=== PATIENT | male | born 1935 | race Caucasian/White ===

== ENCOUNTER 2018-04-18 08:11 | Observation (INO) ==
[2018-04-18] MEDS ORDERED: 0.9 % Sodium Chloride 1,000 ML IVC ONE (08:13)
--- NOTE | 2018-04-18 08:17 | Emergency Department Note ---
Disposition Clinical Impression: Hypertension, Vertigo, Pneumonia Disposition: Admitted As Inpatient Condition: Fair Time of Disposition: 10:08 ([facility] Dizziness HPI - General Source: patient, family Mode of arrival: wheelchair Limitations: no limitations Nursing Notes Reviewed: Yes Vital Signs Reviewed: Yes - History of Present Illness Pt Subjective Complaint: dizziness, near syncope, weakness Onset (ago): day(s) Timing: gradual onset, waxing/waning (and worsening) Description: "room spinning", off-balance History of similar episodes: No History of trauma: No Severity: severe Improves with: remaining still Worsens with: movement, position Associated symptoms: Reports: ataxia, diaphoresis, weakness, nausea. Denies: chest pain, confusion, fever, chills, malaise, rash, shortness of breath, syncope, vision changes, vomiting, palpitations - Related Data Home Medications Medication Instructions Recorded Confirmed Lisinopril [Zestril] 20 mg PO DAILY 03/22/16 03/23/16 Simvastatin [Zocor] 40 mg PO HS 03/22/16 03/23/16 Tamsulosin [Flomax] 0.4 mg PO DAILY 03/22/16 03/23/16 Previous Rx's Medication Instructions Recorded Ciprofloxacin [Cipro] 500 mg PO BID #10 tablet 03/24/16 Lactobacillus [Culturelle] 1 each PO DAILY 10 Days cap.sprink 03/24/16 metroNIDAZOLE [Flagyl] 500 mg PO TID #15 tablet 03/24/16 Allergies Allergy/AdvReac Type Severity Reaction Status Date / Time No Known Allergies Allergy Verified 03/23/16 09:19 All systems ED: reviewed and negative except as stated. Review of Systems: As Per HPI Constitutional: Reports: weakness. Denies: fever, chills Eyes: Denies: eye pain, eye discharge ENT ED: Denies: ear pain, throat pain, dental pain, hearing loss Cardiovascular: Denies: chest pain, palpitations, dyspnea on exertion Respiratory: Reports: dyspnea. Denies: cough, wheezes, hemoptysis Gastrointestinal: Reports: nausea. Denies: abdominal pain, vomiting, diarrhea, constipation Genitourinary: Denies: urgency, dysuria, frequency, hematuria Musculoskeletal: Denies: back pain, neck pain, joint swelling Integumentary: Denies: rash, abrasion, lesions Neurological: Reports: weakness, vertigo. Denies: headache, numbness, paresthesias, confusion Psychiatric: Denies: anxiety, depression Endocrine: Denies: fatigue, heat or cold intolerance Hematological/Lymphatic: Denies: easy bleeding Allergic/Immunologic: Denies: facial swelling Past Medical History - Past Medical History Attestation: Yes The following information was validated with the patient. Source: old records reviewed, obtained from family, nursing notes reviewed Medical history: Reports: hyperlipidemia, hypertension, other (BPH) Surgical history: Reports: herniorrhaphy Psychiatric history: Reports: no psych history - Social History Smoking Status: Never smoker Smokeless Tobacco Status: No Alcohol use: Reports: none Drug use: Reports: none Physical Exam - General General appearance: alert, in no apparent distress, in distress (Diaphoretic) - Head Head exam: atraumatic, normocephalic, normal inspection - Eye Eye exam: Present: normal appearance, PERRL, EOMI - ENT ENT exam: normal exam, normal oropharynx, mucous membranes moist, TM's normal bilaterally, normal external ear exam - Neck Neck exam: Present: normal inspection, full ROM, trachea midline - Chest Chest inspection: Present: normal inspection, symmetric chest wall rise - Respiratory Respiratory exam: Present: normal lung sounds bilaterally - Cardiovascular Cardiovascular exam: Present: regular rate, normal rhythm, normal heart sounds - Abdominal Exam Abdominal exam: Present: soft, Non-Tender, normal bowel sounds. Absent: mass, pulsatile mass - Extremities Exam Extremities exam: Present: normal inspection, full ROM, normal capillary refill. Absent: tenderness, pedal edema, joint swelling, calf tenderness - Expanded Upper Extremity Exam Shoulder exam: Present: normal inspection, full ROM Arm exam: Present: normal inspection, full ROM Elbow exam: Present: normal inspection, full ROM Forearm/Wrist exam: Present: normal inspection, full ROM Hand exam: Present: normal inspection, full ROM Vascular exam: Normal: capillary refill, radial pulse - Expanded Lower Extremity Exam Hip/Pelvis exam: Present: normal inspection, full ROM Upper leg exam: Present: normal inspection, full ROM Knee exam: Present: normal inspection, full ROM Lower leg exam: Present: normal inspection, full ROM Ankle exam: Present: normal inspection, full ROM Foot/toe exam: Present: normal inspection, full ROM Neurovascular/Tendon exam: Present: normal capillary refill, normal fine/light touch. Absent: motor deficit, sensory deficit, tendon deficit Gait: unable to bear weight (Due to vertigo) - Back Exam Back exam: Present: normal inspection, full ROM. Absent: muscle spasm - Neurological Exam Neurological exam: Present: alert, oriented X3, CN II-XII intact, normal gait - Psychiatric Psychiatric exam: Present: normal affect, normal mood - Skin Skin exam: Present: warm, intact, diaphoresis, pallor Course Course Narrative: Patient was assisted car to the ER by nursing staff in a wheelchair patient unable to walk due to the vertigo he was diaphoretic pale in appearance laboratory data was started including workup for make sure it was not myocardial or stroke etiology completion of these patient was admitted transfer to [facility] [place] for an underlying pneumonia started on anabolic seen in the ER received meclizine and Valium transferred stable Vital Signs Temperature 97.6 F 04/18/18 08:11 Pulse Rate 55 04/18/18 08:11 Respiratory Rate 14 04/18/18 08:11 Blood Pressure 194/85 04/18/18 08:11 O2 Sat by Pulse Oximetry 96 04/18/18 08:11 Temperature 97.6 F 04/18/18 08:11 Pulse Rate 57 04/18/18 09:11 Respiratory Rate 14 04/18/18 09:11 Blood Pressure 163/62 04/18/18 09:11 O2 Sat by Pulse Oximetry 98 04/18/18 09:11 Oxygen Delivery Oxygen Delivery Room Air Dizziness - MDM Narrative Medical decision making narrative: Risk is for stroke myocardial infarction vestibular neuritis underlying infectious process - Differential Diagnosis Likely: vertebral basilar insufficiency, acute vestibular neuronitis - Medical Records Medical records reviewed: Yes I reviewed the patient's medical records. - Lab Data Lab results reviewed: Yes I reviewed the patient's lab results. Result diagrams: 04/18/18 08:23 04/18/18 08:23 Lab Results 04/18/18 04/18/18 04/18/18 Range/Units 08:23 08:23 08:23 WBC 6.7 (4.3-11.1) K/mcL RBC 4.78 (4.19-5.50) M/mcL Hgb 14.3 (12.9-16.9) g/dL Hct 42.0 (37.5-50.1) % MCV 87.9 (83.0-100.0) fL MCH 29.9 (28.0-33.3) pg MCHC 34.0 (31.6-35.5) g/dL RDW 12.8 (11.5-14.5) % Plt Count 193 (140-400) K/mcL MPV 10.1 (9.4-12.4) fL Immature Gran % 0.6 (0-4) % Seg Neutrophils % 55.2 % Lymphocytes % 31.0 % Monocytes % 8.9 % Eosinophils % 3.5 % Basophils % 0.8 % Neutrophils # 3.7 (1.6-8.9) K/mcL Lymphocytes # 2.1 (0.6-4.6) K/mcL Monocytes # 0.6 (0.0-1.3) K/mcL Eosinophils # 0.2 (0.0-0.6) K/mcL Basophils # 0.1 (0.0-0.2) K/mcL PT 11.3 (9.4-12.1) Seconds INR 1.0 APTT 32.1 (26.0-36.0) Seconds Sodium 138 (136-145) mEq/L Potassium 3.6 (3.5-5.1) mEq/L Chloride 107 (98-107) mEq/L Carbon Dioxide 21 L (23-29) mEq/L BUN 21 (8-23) mg/dL Creatinine 1.07 (0.70-1.30) mg/dL Est GFR ( Amer) > 60 (> 60) Est GFR (Non-Af Amer) > 60 (> 60) BUN/Creatinine Ratio 20 (6-26) Glucose 193 H (70-105) mg/dL Calculated Osmolality 294 (280-300) Calcium 9.4 (8.6-10.3) mg/dL Total Bilirubin 0.5 (0.3-1.0) mg/dL AST 22 (13-39) Units/L ALT 21 (7-52) Units/L Alkaline Phosphatase 91 (34-104) Units/L Troponin I (< 0.04) ng/mL Serum Total Protein 6.9 (6.4-8.9) g/dL Albumin 3.9 (3.5-5.7) g/dL Globulin 3.0 (2.4-3.5) g/dL Albumin/Globulin Ratio 1.3 (1.1-2.2) 09/03/18 Range/Units 08:23 WBC (4.3-11.1) K/mcL RBC (4.19-5.50) M/mcL Hgb (12.9-16.9) g/dL Hct (37.5-50.1) % MCV (83.0-100.0) fL MCH (28.0-33.3) pg MCHC (31.6-35.5) g/dL RDW (11.5-14.5) % Plt Count (140-400) K/mcL MPV (9.4-12.4) fL Immature Gran % (0-4) % Seg Neutrophils % % Lymphocytes % % Monocytes % % Eosinophils % % Basophils % % Neutrophils # (1.6-8.9) K/mcL Lymphocytes # (0.6-4.6) K/mcL Monocytes # (0.0-1.3) K/mcL Eosinophils # (0.0-0.6) K/mcL Basophils # (0.0-0.2) K/mcL PT (9.4-12.1) Seconds INR APTT (26.0-36.0) Seconds Sodium (136-145) mEq/L Potassium (3.5-5.1) mEq/L Chloride (98-107) mEq/L Carbon Dioxide (23-29) mEq/L BUN (8-23) mg/dL Creatinine (0.70-1.30) mg/dL Est GFR ( Amer) (> 60) Est GFR (Non-Af Amer) (> 60) BUN/Creatinine Ratio (6-26) Glucose (70-105) mg/dL Calculated Osmolality (280-300) Calcium (8.6-10.3) mg/dL Total Bilirubin (0.3-1.0) mg/dL AST (13-39) Units/L ALT (7-52) Units/L Alkaline Phosphatase (34-104) Units/L Troponin I < 0.03 (< 0.04) ng/mL Serum Total Protein (6.4-8.9) g/dL Albumin (3.5-5.7) g/dL Globulin (2.4-3.5) g/dL Albumin/Globulin Ratio (1.1-2.2) - Radiology Data Radiology results reviewed: Yes I reviewed the patient's radiology results. ITS Impressions Chest X-Ray 04/18/18 08:12 IMPRESSION: 1. Infiltrate in the left lung base, obscuring the left hemidiaphragm. This is likely related to pleural effusion and/or atelectasis. Superimposed pneumonia cannot be excluded. D/ / 04/18/2018 09:20:31 Jerrod Vidal MD / Katharine Gant Interpreting Provider: Jerrod Vidal MD Head CT 04/18/18 08:12 IMPRESSION: 1. No acute intracranial abnormality. 2. Cerebral and cerebellar parenchymal volume loss with chronic microvascular white matter ischemic disease. D/ / Jerrod Vidal MD / Jerrod Vidal MD Interpreting Provider: Jerrod Vidal MD - EKG Data EKG attestation: Yes I reviewed and interpreted this EKG. EKG results narrative: Sinus bradycardia and nonspecific T waves with T-wave segment changes noted in 1 and aVL as well as V2 3 and aVF and inversion noted to will recommend repeat serial enzymes rate 52 IN-2 report QRS 98 QT 470 axis -23 Critical Care Time Critical Care Time: No
[2018-04-18 08:32] LABS: Basophils # 0.1 K/mcL (0.0-0.2); Basophils % 0.8 %; Eosinophils # 0.2 K/mcL (0.0-0.6); Eosinophils % 3.5 %; Hemoglobin 14.3 g/dL (12.9-16.9); Immature Granulocytes % 0.6 % (0-4); Lymphocytes # 2.1 K/mcL (0.6-4.6); Mean Corpuscular Hemoglobin 29.9 pg (28.0-33.3); Mean Corpuscular Volume 87.9 fL (83.0-100.0); Mean Platelet Volume 10.1 fL (9.4-12.4); Monocytes # 0.6 K/mcL (0.0-1.3); Monocytes % 8.9 %; Neutrophils # 3.7 K/mcL (1.6-8.9); Platelet Count 193 K/mcL (140-400); Red Blood Count 4.78 M/mcL (4.19-5.50); Red Cell Distribution Width 12.8 % (11.5-14.5); Segmented Neutrophils % 55.2 %
[2018-04-18 08:37] LABS: Prothrombin Time 11.3 Seconds (9.4-12.1)
[2018-04-18 08:40] LABS: Activated Partial Thrombo Time 32.1 Seconds (26.0-36.0)
[2018-04-18 08:59] LABS: Alanine Aminotransferase 21 Units/L (7-52); Albumin 3.9 g/dL (3.5-5.7); Albumin/Globulin Ratio 1.3 (1.1-2.2); Alkaline Phosphatase 91 Units/L (34-104); Aspartate Amino Transferase 22 Units/L (13-39); BUN/Creatinine Ratio 20 (6-26); Bilirubin,Total 0.5 mg/dL (0.3-1.0); Blood Urea Nitrogen 21 mg/dL (8-23); Calcium 9.4 mg/dL (8.6-10.3); Carbon Dioxide 21 mEq/L (23-29); Chloride 107 mEq/L (98-107); Glucose 193 mg/dL (70-105); Osmolality,Calculated 294 (280-300); Potassium 3.6 mEq/L (3.5-5.1); Sodium 138 mEq/L (136-145); Total Protein 6.9 g/dL (6.4-8.9); eGFR For Non-African Americans > 60 (> 60)
[2018-04-18] MEDS ORDERED: Ondansetron 4 MG/2 ML VIAL IVP ONE (09:09)
[2018-04-18] MEDS ORDERED: diazePAM 10 MG/2 ML SYRINGE IVP STA (09:09)
[2018-04-18] MEDS ORDERED: Azithromycin 500 MG in D5% in Water 250 ML IVPB ONE (09:26)
[2018-04-18] MEDS ORDERED: Naloxone 0.4 MG/ML INJ IVP PRN (11:31)
[2018-04-18] MEDS ORDERED: *HR* Dextrose 50 % in Water (Syg) 50 ML SYRINGE IVP PRN (11:31)
[2018-04-18] MEDS ORDERED: D5% in Water 1,000 ML IVC PRN (11:31)
[2018-04-18] MEDS ORDERED: 0.9 % Sodium Chloride 1,000 ML IVC SCH (11:31)
[2018-04-18] MEDS ORDERED: Dextrose Gel 15 GM/37.5 ML TUBE PO PRN ×2 (11:31)
[2018-04-18] MEDS: Ondansetron 4 MG/2 ML VIAL IVP SCH ×2 (12:45→17:57)
[2018-04-18] MEDS: Insulin LISPRO 300 UNITS/3 ML VIAL SQ SCH ×2 (12:46→18:01)
[2018-04-18] MEDS ORDERED: Acetaminophen 325 MG TABLET PO PRN (14:07)
[2018-04-18] MEDS ORDERED: Gadolinium Contrast Agent (WT Based) IV PRN (14:38)
[2018-04-18] MEDS ORDERED: SUMAtriptan succinate 50 MG TABLET PO ONE (14:41)
--- NOTE | 2018-04-18 14:45 | Internal Med History&Physical ---
Date of Encounter: 04/18/18 Time of Encounter: 14:00 Assessment and Plan (1) Vertigo Current visit: Yes Status: Acute Doubt BPPV. Will order MRA to further evaluate for vertebrobasilar TIA. Start aspirin 325 mg daily. Since headache is associated I told him it could be vertiginous migraine variant. He will receive dose of Imitrex today. Further workup will be done as needed. (2) Hypertension Current visit: Yes Status: Chronic Continue lisinopril and monitor blood pressure. Qualifiers: Hypertension type: essential hypertension Qualified Code(s): I10 - Essential (primary) hypertension (3) Pneumonia Current visit: Yes Status: Acute Left lower lobe infiltrate noted on chest x-ray. He has minimal symptoms. Rocephin and Zithromax with lactobacillus were started in the emergency room. Qualifiers: Pneumonia type: due to unspecified organism Laterality: left Lung location: lower lobe of lung Qualified Code(s): J18.1 - Lobar pneumonia, unspecified organism Internal Medicine - H&P: HPI Chief complaint: Vertigo Admitted From: Emergency Dept Plans for Post Hospital Care: Home History of present illness: Mr. Medrano is a 82 year old male who came to emergency room stating he has had intermittent vertigo with headaches over the past 2 months. The vertigo became so severe this morning while ambulating to the bathroom he felt very unstable walking. He was brought to emergency room and evaluated and admitted to [facility] for ongoing care needs. He reports the episodes of vertigo have occurred several times weekly over the last 2 months. The episodes typically last approximately an hour. His PCP has prescribed Flonase and Zyrtec for sinus pressure symptoms. He reports having a "head cold" a few days ago and had cold diaphoresis today. He denies fevers or chills and has had minimal cough. He denies head trauma or past history of strokes or seizures. He reports the episodes of vertigo typically occur with a headache. He is also noticed some "cloudy vision" but has difficulty describing in detail. He denies dysarthria or dysphagia or other focal deficits. Past Med Surg Social Fam HX - Past Medical History Medical history: hyperlipidemia, hypertension, other Additional medical history: enlarged prostate, Psychiatric history: no psych history - Past Surgical History Surgical History: herniorrhaphy Additional surgical history: right inguinal hernia - Social History Smoking Status: Never smoker Smokeless Tobacco Status: No Alcohol use: none Drug use: none - Family History Mother Hx Family Cancer: Yes (ovarian) Father Hx Family Cardiac Disorders: Yes (AR, CVA) Brother Hx Family Neurologic Disorders: Yes (Dementia) Internal Medicine - H&P: Meds Lisinopril [Zestril] 20 mg PO DAILY 03/22/16 [History] Simvastatin [Zocor] 40 mg PO HS 03/22/16 [History] Tamsulosin [Flomax] 0.4 mg PO DAILY 03/22/16 [History] Cetirizine HCl [Zyrtec] 10 mg PO DAILY 04/18/18 [History] LORazepam [Ativan] 1 mg PO DAILY 04/18/18 [History] Ranitidine HCl [Acid Prison Guard] 75 mg PO DAILY 04/18/18 [History] 3 Allergy/AdvReac Type Severity Reaction Status Date / Time No Known Allergies Allergy Verified 03/23/16 09:19 All Systems PM: A 10-system review of systems was performed and is negative for pertinent findings except as documented above in the HPI. Review of systems: Gen.: His weight has been stable the past few months Cardiovascular: He has history of hypertension but denies AR heart failure angina DVT or pulmonary embolus. Respiratory: He is a lifelong nonsmoker has no known chronic lung disease. GI: He has had diverticulitis in the past. He denies disorders of his liver gallbladder or exocrine pancreas. : He has BPH. He has had UTIs in the past. He denies other kidney or bladder disorders. Neurologic: As per history of present illness Endocrine: He has history of hyperlipidemia. He denies diabetes or thyroid disease. Hematology/oncology: He denies blood disorders cancers or anemia Psychiatric: He has anxiety but denies depression or other mental health issues. [place] skeletal: He has DJD but denies gout or other bone joint or muscle disorders. - Constitutional Vitals: Temp Pulse Resp BP Pulse Ox 97.4 F L 71 16 191/72 93 04/18/18 11:45 04/18/18 11:45 04/18/18 11:45 04/18/18 11:45 04/18/18 11:45 Exam: Gen.: He is a well-developed well-nourished male lying in bed who appears in no acute distress. HEENT: Head is atraumatic and normocephalic. Eyes: EOMI. There is no scleral icterus. Mouth: Mucosa is moist. Neck: Supple and nontender. There is no thyromegaly or adenopathy noted. Heart: Regular without murmurs gallops or ectopics Lungs: No wheezes or crackles are heard. Abdomen: Soft and nontender. No masses or guarding are noted. Extremities: There is no cyanosis edema or clubbing noted. Dorsalis pedis and posterior tibial pulses are 1-2 over 2 bilaterally. Neurologic: Mental status: He is talkative and a good historian. Cranial nerves : Smile is symmetric. Forehead wrinkles bilaterally. Tongue protrudes midline. EOMI. He is slightly hard of hearing. There is no worsening of symptoms of vertigo on modified Hallpike maneuver. No nystagmus is noted. Motor: There is no pronator drift. Ankle flexion and extension strength against resistance is 2/2 bilaterally. He is able to lift both legs off the bed. Rapid finger movements are intact symmetrically. Cerebellar: Finger to nose is intact bilaterally. Skin: Warm and dry Internal Med - H&P Results - Labs CBC & Chem 7: 04/18/18 08:23 04/18/18 08:23
[2018-04-18] MEDS: diazePAM 2 MG TABLET PO SCH ×2 (16:01→20:49)
[2018-04-18] MEDS: Aspirin 325 MG TABLET PO SCH (16:01)
[2018-04-18] MEDS: 0.45 % Sodium Chloride w/KCl 20 MEQ/1,000 ML MLS IVC SCH (16:02)
[2018-04-18 19:31] LABS: Bilirubin,Urine Negative (Negative); Blood,Urine Trace-lysed (Negative); Color,Urine Yellow (Yellow); Glucose,Urine (UA) Normal (Normal); Ketones,Urine Negative (Negative); Leukocyte Esterase,Urine Small (Negative); Nitrite,Urine Negative (Negative); Protein,Urine Negative (Neg-Trace); Urobilinogen,Urine Normal (Normal)
[2018-04-18 19:42] LABS: Clarity,Urine Slightly Cloudy (Clear)
[2018-04-18 19:47] LABS: Hyaline Casts,Urine Few per lpf (None-Few); Mucus,Urine Few (Few); Squamous Epithelial Cell,Urine Few per lpf (None-Few)
[2018-04-18 19:48] LABS: Bacteria,Urine Many per hpf (None-Few); WBC,Urine 30-50 per hpf (0-3)
[2018-04-18 19:52] LABS: RBC,Urine 0-3 per hpf (0-3)
[2018-04-18] MEDS ORDERED: Nitroglycerin 0.4 MG TAB.SUBL SL PRN (19:59)
[2018-04-18] MEDS ORDERED: *HR* Morphine 2 MG/ML SYRINGE IVP ONE (20:01)
[2018-04-19] MEDS: amLODIPine 5 MG TABLET PO ONE ×2 (00:28→00:45)
[2018-04-19] MEDS: Ondansetron 4 MG/2 ML VIAL IVP SCH ×2 (00:31→06:24)
[2018-04-19] MEDS: 0.45 % Sodium Chloride w/KCl 20 MEQ/1,000 ML MLS IVC SCH ×2 (02:36→12:05)
[2018-04-19 06:19] LABS: Basophils % 0.2 %; Eosinophils # 0.1 K/mcL (0.0-0.6); Eosinophils % 0.8 %; Hematocrit 37.4 % (37.5-50.1); Hemoglobin 12.2 g/dL (12.9-16.9); Immature Granulocytes % 0.2 % (0-4); Lymphocytes % 10.8 %; Mean Corpuscular HGB Conc 32.6 g/dL (31.6-35.5); Mean Corpuscular Hemoglobin 29.8 pg (28.0-33.3); Mean Corpuscular Volume 91.2 fL (83.0-100.0); Mean Platelet Volume 10.6 fL (9.4-12.4); Monocytes # 0.9 K/mcL (0.0-1.3); Monocytes % 9.3 %; Neutrophils # 7.6 K/mcL (1.6-8.9); Platelet Count 179 K/mcL (140-400); Red Cell Distribution Width 13.2 % (11.5-14.5); Segmented Neutrophils % 78.7 %
[2018-04-19 06:41] LABS: BUN/Creatinine Ratio 16 (6-26); Blood Urea Nitrogen 18 mg/dL (8-23); Carbon Dioxide 25 mEq/L (23-29); Chloride 110 mEq/L (98-107); Glucose 95 mg/dL (70-105); Osmolality,Calculated 292 (280-300); Potassium 4.4 mEq/L (3.5-5.1); Sodium 140 mEq/L (136-145); eGFR For Non-African Americans > 60 (> 60)
[2018-04-19] MEDS ORDERED: cefTRIAXone 1,000 MG in Water for inj. (sterile) 20 ML 10 ML IVP SCH (09:00)
[2018-04-19] MEDS ORDERED: Lactobacillus 1 EACH CAP.SPRINK PO SCH (09:00)
[2018-04-19] MEDS ORDERED: Azithromycin 500 MG in D5% in Water 250 ML IVPB SCH (09:00)
[2018-04-19] MEDS ORDERED: Lisinopril 20 MG TABLET PO SCH (09:00)
[2018-04-19] MEDS: diazePAM 2 MG TABLET PO SCH (09:41)
[2018-04-19] MEDS: Aspirin 325 MG TABLET PO SCH (09:41)
[2018-04-19] MEDS: Insulin LISPRO 300 UNITS/3 ML VIAL SQ SCH (09:43)
[2018-04-19] MEDS ORDERED: Ondansetron 4 MG/2 ML VIAL IVP PRN (11:00)
[2018-04-19 11:26] VITALS: BP 168/57
--- NOTE | 2018-04-19 14:49 | Discharge Summary ---
Date of Encounter: 04/19/18 Time of Encounter: 14:35 - Discharge Diagnosis (1) Vertigo Priority: Primary Status: Acute (2) Hypertension Priority: Secondary Status: Chronic Qualifiers: Hypertension type: essential hypertension Qualified Code(s): I10 - Essential (primary) hypertension (3) Pneumonia Priority: Secondary Status: Acute Qualifiers: Pneumonia type: due to unspecified organism Laterality: left Lung location: lower lobe of lung Qualified Code(s): J18.1 - Lobar pneumonia, unspecified organism Hospital course: Mr. Medrano is a 82 year old male who came to emergency room stating he has had intermittent vertigo with headaches over the past 2 months. The vertigo became so severe this morning while ambulating to the bathroom he felt very unstable walking. He was brought to emergency room and evaluated and admitted to [facility] for ongoing care needs. Initial orders were written by the emergency room physician. I saw him on April 18 and performed a history and physical. Brain MRI/MRA was ordered to further evaluate. No acute intracranial abnormality was seen. There was no significant stenosis of the internal carotid arteries or vertebrobasilar system. The patient was given 325 mg aspirin and a single dose of Imitrex. When I saw him on April 19 he was asymptomatic and felt back to his baseline. He felt stable for discharge home with which I felt was reasonable. The etiology of his vertigo was not determined with certainty. I told patient and family it could be a migraine variant or less likely a TIA. He will continue OTC aspirin 81 mg daily. He will follow with his PCP within 1 week. Empiric treatment for migraine headache variant and/or referral to neurology may be warranted if vertigo symptoms persist. He was started on Rocephin and Zithromax IV empirically for left lung base infiltrate. He remained afebrile and WBC remained normal with no left shift seen on follow-up labs. He will continue with antibiotic and probiotic for 4 additional days at discharge. Repeat cardiac enzymes showed rise of troponin to 0.06 which remain unchanged on a third draw. I suspect this was due to demand ischemia without non-STEMI. He denied angina or anginal equivalents. - Time Spent with Patient Total time spent providing and/or coordinating discharge services: - Discharge Medications Prescriptions: Cefuroxime PO [Ceftin] 500 mg PO Q12HR #8 tablet Aspirin [Lo-Dose Aspirin EC] 81 mg PO DAILY 365 Days tablet. Azithromycin [Zithromax] 250 mg PO DAILY #4 tablet Lactobacillus [Culturelle] 1 each PO BID #8 cap.sprink Home Medications: Lisinopril [Zestril] 20 mg PO DAILY 03/22/16 [History] Simvastatin [Zocor] 40 mg PO HS 03/22/16 [History] Tamsulosin [Flomax] 0.4 mg PO DAILY 03/22/16 [History] Cetirizine HCl [Zyrtec] 10 mg PO DAILY 04/18/18 [History] LORazepam [Ativan] 1 mg PO DAILY 04/18/18 [History] Ranitidine HCl [Acid Title I Coordinator] 75 mg PO DAILY 04/18/18 [History] Aspirin [Lo-Dose Aspirin EC] 81 mg PO DAILY 365 Days tablet. 04/19/18 [Rx] Azithromycin [Zithromax] 250 mg PO DAILY #4 tablet 04/19/18 [Rx] Cefuroxime PO [Ceftin] 500 mg PO Q12HR #8 tablet 04/19/18 [Rx] Lactobacillus [Culturelle] 1 each PO BID #8 cap.sprink 04/19/18 [Rx] Allergies/Adverse Reactions: 3 Allergy/AdvReac Type Severity Reaction Status Date / Time No Known Allergies Allergy Verified 03/23/16 09:19 Date of admission: 04/18/18 11:22 Primary care physician: Poornima Luna CNP - Constitutional Vitals: Temp Pulse Resp BP Pulse Ox 98.4 F 59 18 168/57 92 04/19/18 11:21 04/19/18 11:21 04/19/18 11:21 04/19/18 11:21 04/19/18 11:21 - Patient Status Disposition: Home, Self-Care Condition: Fair - Discharge Instructions Follow Up With: Poornima Luna CNP [Primary Care Provider] - 1 week Forms: ED Satisfaction Letter, Work/School Release - Diet and Activity Activity: resume usual activities as tolerated Diet: advance to your usual diet
--- NOTE | 2018-04-20 23:10 | Electrocardiograph Report ---
[address] [address] Test Date: 2018-04-18 Pat Name: Dunia Medrano Department: [id number] Room: [facility] Gender: M Bond Writer: Keiry : 1935 Requested By: Shae Garay Order Number: [id number] Reading MD: Eliceo Reynolds Measurements Intervals [place] Rate: 52 P: 141 FL: 204 QRS: -23 QRSD: 98 T: 87 QT: 470 QTc: 451 Interpretive Statements SINUS BRADYCARDIA BORDERLINE LEFT AXIS DEVIATION NONSPECIFIC ST & T-WAVE ABNORMALITY Electronically Signed On 04-20-2018 23:08:52 EDT by Eliceo Reynolds
== END 2018-04-19 17:34 | disposition home or self-care (01) ==
LOC: INPPIK 08:11 → EMEROOPIK 08:11 → INPPIK 11:45
PROVIDERS: ADMIT Internal Medicine; ATTEND Internal Medicine

== ENCOUNTER 2018-09-12 08:51 | Observation (INO) ==
--- NOTE | 2018-09-12 09:06 | Emergency Department Note ---
Disposition Clinical Impression: Bradycardia, UTI (urinary tract infection) Disposition: Admitted As Inpatient Time of Disposition: 11:10 Dizziness HPI - General Chief Complaint: ED Dizziness Stated Complaint: dizziness, fall Time Seen by Provider: 09/12/18 08:55 Source: patient Mode of arrival: ambulatory Limitations: no limitations Nursing Notes Reviewed: Yes Vital Signs Reviewed: Yes - History of Present Illness HPI Narrative: Patient was recently seen and admitted for syncopal episode has bradycardia. Today he went on his coveralls bent over and when he stood up passed out was unconscious for a short period time. He says that he got dizzy and fell over and may not of complete passed out. Everything got black but he hit the ground and then everything came back right away. He is also says had left earache for a while as well. 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: sudden onset Description: lightheadedness History of similar episodes: Yes History of trauma: No Severity: now resolved Associated symptoms: Reports: denies other symptoms - Related Data Home Medications Medication Instructions Recorded Confirmed Lisinopril [Zestril] 20 mg PO DAILY 03/22/16 09/12/18 Simvastatin [Zocor] 40 mg PO HS 03/22/16 09/12/18 Tamsulosin [Flomax] 0.4 mg PO DAILY 03/22/16 09/12/18 LORazepam [Ativan] 1 mg PO DAILY 04/18/18 09/12/18 Ranitidine HCl [Acid Tag Press Operator] 75 mg PO DAILY 04/18/18 09/12/18 Metoprolol [Lopressor] 25 mg PO BID 09/12/18 09/12/18 amLODIPine [Norvasc] 5 mg PO DAILY 09/12/18 09/12/18 Previous Rx's Medication Instructions Recorded Aspirin [Lo-Dose Aspirin EC] 81 mg PO DAILY 365 Days tablet. 04/19/18 Allergies Allergy/AdvReac Type Severity Reaction Status Date / Time No Known Allergies Allergy Verified 03/23/16 09:19 All systems ED: reviewed and negative except as stated. Review of Systems: As Per HPI Constitutional: Denies: fever, chills, weakness, weight change Eyes: Denies: eye pain, eye discharge, vision change ENT ED: Reports: as per HPI, ear pain. Denies: throat pain, dental pain, hearing loss, epistaxis, congestion, dysphagia Cardiovascular: Denies: chest pain, palpitations, dyspnea on exertion, edema, syncope Respiratory: Denies: cough, dyspnea, wheezes, hemoptysis, stridor Gastrointestinal: Denies: abdominal pain, nausea, vomiting, diarrhea, constipation, hematemesis, melena, hematochezia Genitourinary: Denies: urgency, dysuria, frequency, hematuria Musculoskeletal: Denies: back pain, neck pain, arthralgia, myalgia Integumentary: Denies: rash, abrasion, lesions Neurological: Reports: as per HPI, other (Near syncope/syncope) Psychiatric: Denies: anxiety, depression, suicidal thoughts, homicidal thoughts, auditory hallucinations, visual hallucinations Endocrine: Denies: fatigue Hematological/Lymphatic: Denies: easy bleeding, easy bruising Allergic/Immunologic: Denies: facial swelling, urticaria Past Medical History - Past Medical History Attestation: Yes The following information was validated with the patient. Source: patient, nursing notes reviewed Medical history: Reports: hyperlipidemia, hypertension, other Surgical history: Reports: herniorrhaphy Psychiatric history: Reports: no psych history - Social History Smoking Status: Never smoker Smokeless Tobacco Status: No Alcohol use: Reports: none Drug use: Reports: none Physical Exam - General Limitations: no limitations General appearance: alert - Head Head exam: atraumatic, normocephalic, normal inspection - Eye Eye exam: Present: normal appearance, PERRL, EOMI - ENT ENT exam: normal exam, normal oropharynx, mucous membranes moist, TM's normal bilaterally - Neck Neck exam: Present: normal inspection, full ROM, trachea midline - Chest Chest inspection: Present: normal inspection, symmetric chest wall rise - Respiratory Respiratory exam: Present: normal lung sounds bilaterally - Cardiovascular Cardiovascular exam: Present: normal rhythm, bradycardia, normal heart sounds - Abdominal Exam Abdominal exam: Present: soft, Non-Tender. Absent: tenderness, distention, guarding, rebound, rigidity - Extremities Exam Extremities exam: Present: normal inspection, full ROM. Absent: tenderness, pedal edema - Back Exam Back exam: Present: normal inspection - Neurological Exam Neurological exam: Present: alert, oriented X3, CN II-XII intact - Psychiatric Psychiatric exam: Present: normal affect, normal mood - Skin Skin exam: Present: warm, dry, intact Course Vital Signs Temperature 97.5 F L 09/12/18 08:53 Pulse Rate 40 09/12/18 08:53 Respiratory Rate 18 09/12/18 08:53 Blood Pressure 186/81 09/12/18 08:53 O2 Sat by Pulse Oximetry 97 09/12/18 08:53 Temperature 97.5 F L 09/12/18 08:53 Pulse Rate 40 09/12/18 13:58 Respiratory Rate 16 09/12/18 13:58 Blood Pressure 140/55 09/12/18 13:58 O2 Sat by Pulse Oximetry 98 09/12/18 13:58 Oxygen Delivery Oxygen Delivery Room Air Dizziness - MDM Narrative Medical decision making narrative: EKG shows a sinus bradycardia with a rate of 39 bpm DE interval is 206 ms. QRS duration 97 ms QTc interval 490 ms QTC 395 ms. R axis XLVI degrees. There is no acute ST elevation. Other than bradycardia this is an unremarkable EKG - Lab Data Lab results reviewed: Yes I reviewed the patient's lab results. Result diagrams: 09/12/18 09:30 09/12/18 09:30 Lab Results 09/12/18 09/12/18 09/12/18 Range/Units 09:30 09:30 10:28 WBC 6.3 (4.3-11.1) K/mcL RBC 4.36 (4.19-5.50) M/mcL Hgb 13.4 (12.9-16.9) g/dL Hct 39.7 (37.5-50.1) % MCV 91.1 (83.0-100.0) fL MCH 30.7 (28.0-33.3) pg MCHC 33.8 (31.6-35.5) g/dL RDW 12.8 (11.5-14.5) % Plt Count 212 (140-400) K/mcL MPV 10.1 (9.4-12.4) fL Immature Gran % 0.3 (0-4) % Seg Neutrophils % 69.9 % Lymphocytes % 19.2 % Monocytes % 7.9 % Eosinophils % 2.1 % Basophils % 0.6 % Neutrophils # 4.4 (1.6-8.9) K/mcL Lymphocytes # 1.2 (0.6-4.6) K/mcL Monocytes # 0.5 (0.0-1.3) K/mcL Eosinophils # 0.1 (0.0-0.6) K/mcL Basophils # 0.0 (0.0-0.2) K/mcL Sodium 141 (136-145) mEq/L Potassium 4.3 (3.5-5.1) mEq/L Chloride 110 H (98-107) mEq/L Carbon Dioxide 25 (23-29) mEq/L BUN 23 (8-23) mg/dL Creatinine 1.14 (0.70-1.30) mg/dL Est GFR ( Amer) > 60 (> 60) Est GFR (Non-Af Amer) > 60 (> 60) BUN/Creatinine Ratio 20 (6-26) Glucose 124 H (70-105) mg/dL Calculated Osmolality 297 (280-300) Calcium 9.3 (8.6-10.3) mg/dL Total Bilirubin 0.5 (0.3-1.0) mg/dL AST 15 (13-39) Units/L ALT 14 (7-52) Units/L Alkaline Phosphatase 81 (34-104) Units/L Troponin I < 0.03 (< 0.04) ng/mL Serum Total Protein 6.8 (6.4-8.9) g/dL Albumin 3.9 (3.5-5.7) g/dL Globulin 2.9 (2.4-3.5) g/dL Albumin/Globulin Ratio 1.3 (1.1-2.2) Urine Color Yellow (Yellow) Urine Clarity Slightly Cloudy A (Clear) Urine pH 6.5 (5.0-8.0) pH Units Ur Specific [place] 1.020 (1.010-1.025) Urine Protein Negative (Neg-Trace) mg/dL Urine Glucose (UA) Normal (Normal) mg/dL Urine Ketones Negative (Negative) mg/dL Urine Blood Trace-lysed H (Negative) Urine Nitrite Negative (Negative) Urine Bilirubin Negative (Negative) Urine Urobilinogen Normal (Normal) mg/dL Ur Leukocyte Esterase Small H (Negative) Urine Microscopic RBC 0-3 (0-3) per hpf Urine Microscopic WBC TNTC H (0-3) per hpf Ur Squamous Epith Cells Few (None-Few) per lpf Amorphous Sediment Moderate H (Few) Urine Bacteria Many H (None-Few) per hpf Granular Casts Few H (None Seen) per lpf Urine Yeast Few H (None Seen) per hpf Ur Culture Indicated? YES A (NO) - Radiology Data Radiology results reviewed: Yes I reviewed the patient's radiology results. - EKG Data EKG attestation: Yes I reviewed and interpreted this EKG. EKG results narrative: EKG shows a heart rate of [address]-T wave changes noted. DE interval 206 ms QRS duration 97 ms. QT interval 490 ms QTC 395 ms R axis of 46 degrees.
[2018-09-12 09:36] LABS: Basophils % 0.6 %; Eosinophils # 0.1 K/mcL (0.0-0.6); Eosinophils % 2.1 %; Hematocrit 39.7 % (37.5-50.1); Hemoglobin 13.4 g/dL (12.9-16.9); Immature Granulocytes % 0.3 % (0-4); Lymphocytes # 1.2 K/mcL (0.6-4.6); Lymphocytes % 19.2 %; Mean Corpuscular HGB Conc 33.8 g/dL (31.6-35.5); Mean Corpuscular Hemoglobin 30.7 pg (28.0-33.3); Mean Corpuscular Volume 91.1 fL (83.0-100.0); Mean Platelet Volume 10.1 fL (9.4-12.4); Monocytes # 0.5 K/mcL (0.0-1.3); Monocytes % 7.9 %; Neutrophils # 4.4 K/mcL (1.6-8.9); Platelet Count 212 K/mcL (140-400); Red Blood Count 4.36 M/mcL (4.19-5.50); Red Cell Distribution Width 12.8 % (11.5-14.5); Segmented Neutrophils % 69.9 %
[2018-09-12] MEDS ORDERED: diazePAM 5 MG TABLET PO ONE (09:38)
[2018-09-12 09:52] LABS: Alanine Aminotransferase 14 Units/L (7-52); Albumin 3.9 g/dL (3.5-5.7); Albumin/Globulin Ratio 1.3 (1.1-2.2); Alkaline Phosphatase 81 Units/L (34-104); Aspartate Amino Transferase 15 Units/L (13-39); BUN/Creatinine Ratio 20 (6-26); Bilirubin,Total 0.5 mg/dL (0.3-1.0); Blood Urea Nitrogen 23 mg/dL (8-23); Calcium 9.3 mg/dL (8.6-10.3); Carbon Dioxide 25 mEq/L (23-29); Chloride 110 mEq/L (98-107); Globulin 2.9 g/dL (2.4-3.5); Glucose 124 mg/dL (70-105); Osmolality,Calculated 297 (280-300); Potassium 4.3 mEq/L (3.5-5.1); Sodium 141 mEq/L (136-145); Total Protein 6.8 g/dL (6.4-8.9); eGFR For Non-African Americans > 60 (> 60)
[2018-09-12 09:55] LABS: Troponin I < 0.03 ng/mL (< 0.04)
--- NOTE | 2018-09-12 10:02 | Electrocardiograph Report ---
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
[2018-09-12 10:40] LABS: Bilirubin,Urine Negative (Negative); Blood,Urine Trace-lysed (Negative); Clarity,Urine Slightly Cloudy (Clear); Color,Urine Yellow (Yellow); Glucose,Urine (UA) Normal (Normal); Ketones,Urine Negative (Negative); Leukocyte Esterase,Urine Small (Negative); Nitrite,Urine Negative (Negative); PH,Urine 6.5 pH Units (5.0-8.0); Protein,Urine Negative (Neg-Trace); Urobilinogen,Urine Normal (Normal)
[2018-09-12 10:46] LABS: Amorphous Sediment,Urine Moderate (Few); Bacteria,Urine Many per hpf (None-Few); Granular Casts,Urine Few per lpf (None Seen); RBC,Urine 0-3 per hpf (0-3); Squamous Epithelial Cell,Urine Few per lpf (None-Few); WBC,Urine TNTC per hpf (0-3); Yeast,Urine Few per hpf (None Seen)
[2018-09-12] MEDS ORDERED: cefTRIAXone 2,000 MG in 0.9 % Sodium Chloride Mini Bag 100 ML IVPB ONE (11:08)
[2018-09-12] MEDS ORDERED: Naloxone 0.4 MG/ML INJ IVP PRN (15:52)
--- NOTE | 2018-09-12 17:34 | Internal Med History&Physical ---
Date of Encounter: 09/12/18 Time of Encounter: 14:45 Assessment and Plan (1) Bradycardia Current visit: Yes Status: Acute Metoprolol has been held. Telemetry monitoring has been ordered. Orthostatic vital signs will be checked in a.m. (2) Fall Current visit: Yes Status: Acute Possibly secondary to bradycardia and/or orthostatic hypotension. Check orthostatic vital signs in a.m. Qualifiers: Encounter type: initial encounter Qualified Code(s): W19.XXXA - Unspecified fall, initial encounter (3) BPH (benign prostatic hyperplasia) Current visit: No Status: Chronic Continue Flomax. Qualifiers: Lower urinary tract symptom presence: symptoms present Lower urinary tract symptom detail: unspecified Qualified Code(s): N40.1 - Benign prostatic hyperplasia with lower urinary tract symptoms (4) Hypertension Current visit: No Status: Chronic Hold metoprolol. Continue Norvasc and lisinopril. Qualifiers: Hypertension type: essential hypertension Qualified Code(s): I10 - Essential (primary) hypertension (5) UTI (urinary tract infection) Current visit: Yes Status: Acute Urine culture has been ordered. He was given Rocephin empirically in emergency room. He is asymptomatic. Qualifiers: Urinary tract infection type: site unspecified Hematuria presence: with hematuria Qualified Code(s): N39.0 - Urinary tract infection, site not specified; R31.9 - Hematuria, unspecified Internal Medicine - H&P: HPI Chief complaint: Near syncope Admitted From: Emergency Dept Plans for Post Hospital Care: Home History of present illness: Mr. Medrano is a 83 year old male who came to emergency room stating he had an episode of near syncope after coming back from the bathroom to the bedroom earlier today. He reported feeling "lightheaded" without vertigo sensation. 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 He fell without injury. He was brought to emergency room and was evaluated and found to have bradycardia with heart rate 39/m. He was admitted to [facility] for ongoing care needs. He denies orthostatic symptoms on arising from a seated position. He has not had previous similar episode of lightheadedness. He was hospitalized at [facility] April 2018 with vertigo. The etiology was not determined with certainty. MRI/MRA of cerebral circulation was unremarkable. He was treated with antibiotics for LLL pneumonia and states vertigo symptoms resolved approximately 2-3 weeks later and have not recurred. 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 Holter monitor 07/04/2018 showed average heart rate of 52 with range of 36-98. He had 6 runs of NSVT. There was a single run of PSVT rate 152/m. There were PACs present. All these were asymptomatic on the diary. He was started on metoprolol and Norvasc. Echocardiogram 06/24/2018 showed LVEF of 60-65%. The interventricular septum and posterior wall thickness measurements were elevated at 1.30 cm each. E/A ratio was 0.8. No significant valvular abnormalities were seen. No pulmonary hypertension was reported but no estimated RVSP was recorded. Regadenoson stress test 07/26/2018 showed EKG portion negative for ischemia but a small reversible perfusion defect in the apical inferior segment was noted. He was given Lopressor and metoprolol as per above. He did not have heart cath done. He has history of hypertension and states blood pressures show significant fluctuation on home checks. Heart rate at home is frequently in the 40s. He denies MA heart failure angina DVT or pulmonary embolus. Past Med Surg Social Fam HX - Past Medical History Medical history: hyperlipidemia, hypertension, other Additional medical history: enlarged prostate, hx bradycardia with pvc's Psychiatric history: no psych history - Past Surgical History Surgical History: herniorrhaphy Additional surgical history: right inguinal hernia - Social History Smoking Status: Never smoker Smokeless Tobacco Status: No Alcohol use: none Drug use: none - Family History Mother Hx Family Cancer: Yes (ovarian) Father Hx Family Cardiac Disorders: Yes (MA, CVA) Brother Hx Family Neurologic Disorders: Yes (Dementia) Internal Medicine - H&P: Meds Lisinopril [Zestril] 20 mg PO DAILY 03/22/16 [History] Simvastatin [Zocor] 40 mg PO HS 03/22/16 [History] Tamsulosin [Flomax] 0.4 mg PO DAILY 03/22/16 [History] LORazepam [Ativan] 1 mg PO DAILY 04/18/18 [History] Ranitidine HCl [Acid Translational Specialist] 75 mg PO DAILY 04/18/18 [History] Aspirin [Lo-Dose Aspirin EC] 81 mg PO DAILY 365 Days tablet. 04/19/18 [Rx] Metoprolol [Lopressor] 25 mg PO BID 09/12/18 [History] amLODIPine [Norvasc] 5 mg PO DAILY 09/12/18 [History] Allergy/AdvReac Type Severity Reaction Status Date / Time No Known Allergies Allergy Verified 03/23/16 09:19 All Systems PM: A 10-system review of systems was performed and is negative for pertinent findings except as documented above in the HPI. Review of systems: Review of systems from his April 2018 [facility] hospitalization were reviewed and revised as below. Gen.: His weight has been stable at approximately 93 kg since April 2018. Cardiovascular: As per history of present illness Respiratory: He is a lifelong nonsmoker has no known chronic lung disease. GI: He has had diverticulitis in the past. He denies disorders of his liver gallbladder or exocrine pancreas. : He has BPH. He has had UTIs in the past. He denies other kidney or bladder disorders. Neurologic: He had vertigo which has now resolved as per history of present illness narrative. He denies large distribution strokes or seizures. Endocrine: He has history of hyperlipidemia. He denies diabetes or thyroid disease. Hematology/oncology: He denies blood disorders cancers or anemia Psychiatric: He has anxiety but denies depression or other mental health issues. [place] skeletal: He has DJD but denies gout or other bone joint or muscle disorders. - Constitutional Vitals: Temp Pulse Resp BP Pulse Ox 97.5 F L 40 16 197/53 98 09/12/18 16:33 09/12/18 16:33 09/12/18 15:31 09/12/18 16:33 09/12/18 16:33 Exam: Gen.: He is a well developed well-nourished male resting comfortably in bed who appears in no acute distress HEENT: Head is atraumatic and normocephalic. Eyes: EOMI. There is no scleral icterus. Mouth: Mucosa is moist. Neck: Supple and nontender. There is no thyromegaly or adenopathy noted. Heart: Bradycardic but regular without murmurs gallops or ectopics Lungs: No wheezes or crackles are heard. Abdomen: Soft and nontender. No masses or guarding are noted. Extremities: There is no cyanosis edema or clubbing noted. Dorsalis pedis and posterior tibial pulses are trace to 1+ palpable bilaterally. Neurologic: Mental status: He is talkative and a good historian. Cranial nerves: Smile is symmetric. Forehead wrinkles bilaterally. Tongue protrudes midline. EOMI. Motor: There is no pronator drift. Cerebellar: Finger to nose is intact bilaterally. Skin: Warm and dry Internal Med - H&P Results - Labs CBC & Chem 7: 09/12/18 09:30 09/12/18 09:30 Labs: Short CBC 09/12/18 Range/Units 09:30 WBC 6.3 (4.3-11.1) K/mcL Hgb 13.4 (12.9-16.9) g/dL Hct 39.7 (37.5-50.1) % Plt Count 212 (140-400) K/mcL Neutrophils # 4.4 (1.6-8.9) K/mcL BMP 09/12/18 09:30 Sodium 141 Potassium 4.3 Chloride 110 H Carbon Dioxide 25 BUN 23 Creatinine 1.14 Glucose 124 H Calcium 9.3 Cardiac Enzymes 09/12/18 Range/Units 09:30 Troponin I < 0.03 (< 0.04) ng/mL Liver Function 09/12/18 Range/Units 09:30 Total Bilirubin 0.5 (0.3-1.0) mg/dL AST 15 (13-39) Units/L ALT 14 (7-52) Units/L Alkaline Phosphatase 81 (34-104) Units/L Albumin 3.9 (3.5-5.7) g/dL Urine 09/12/18 Range/Units 10:28 Urine Color Yellow (Yellow) Urine Clarity Slightly Cloudy A (Clear) Urine pH 6.5 (5.0-8.0) pH Units Ur Specific [place] 1.020 (1.010-1.025) Urine Protein Negative (Neg-Trace) mg/dL Urine Glucose (UA) Normal (Normal) mg/dL - Impressions ITS Impressions Chest X-Ray 09/12/18 09:06 IMPRESSION: 1. No acute abnormality. D/ / Dru Burch MD / Dru Burch MD Interpreting Provider: Dru Burch MD Head CT 09/12/18 09:06 IMPRESSION: No acute findings in the head. D/ / Brenden Calvert MD / Brenden Calvert MD Interpreting Provider: Brenden Calvert MD
[2018-09-13 06:34] LABS: Basophils # 0.1 K/mcL (0.0-0.2); Basophils % 0.7 %; Eosinophils # 0.2 K/mcL (0.0-0.6); Eosinophils % 2.4 %; Hematocrit 39.8 % (37.5-50.1); Hemoglobin 13.4 g/dL (12.9-16.9); Immature Granulocytes % 0.1 % (0-4); Lymphocytes # 1.8 K/mcL (0.6-4.6); Lymphocytes % 24.3 %; Mean Corpuscular HGB Conc 33.7 g/dL (31.6-35.5); Mean Corpuscular Hemoglobin 30.2 pg (28.0-33.3); Mean Corpuscular Volume 89.6 fL (83.0-100.0); Mean Platelet Volume 10.2 fL (9.4-12.4); Monocytes # 0.8 K/mcL (0.0-1.3); Monocytes % 10.3 %; Neutrophils # 4.6 K/mcL (1.6-8.9); Platelet Count 209 K/mcL (140-400); Red Blood Count 4.44 M/mcL (4.19-5.50); Red Cell Distribution Width 12.7 % (11.5-14.5); Segmented Neutrophils % 62.2 %
[2018-09-13 07:08] VITALS: BP 163/68
[2018-09-13] MEDS ORDERED: Aspirin Enteric Coated 81 MG Tablet PO SCH (09:00)
[2018-09-13] MEDS ORDERED: Famotidine 20 MG TABLET PO SCH (09:00)
[2018-09-13] MEDS ORDERED: *HR* LORazepam 1 MG TABLET PO SCH (09:00)
[2018-09-13] MEDS ORDERED: amLODIPine 5 MG TABLET PO SCH (09:00)
[2018-09-13] MEDS ORDERED: Lisinopril 20 MG TABLET PO SCH (09:00)
--- NOTE | 2018-09-13 10:08 | Discharge Summary ---
Orders not resulted at time of discharge: Pending orders 09/12/18 10:28 Culture,Urine [RM] Stat Date of Encounter: 09/13/18 Time of Encounter: 09:50 - Discharge Diagnosis (1) Bradycardia Priority: Primary Status: Resolved (2) Fall Priority: Secondary Status: Acute Qualifiers: Encounter type: initial encounter Qualified Code(s): W19.XXXA - Unspecified fall, initial encounter (3) BPH (benign prostatic hyperplasia) Priority: Secondary Status: Chronic Qualifiers: Lower urinary tract symptom presence: symptoms present Lower urinary tract symptom detail: unspecified Qualified Code(s): N40.1 - Benign prostatic hyperplasia with lower urinary tract symptoms (4) Hypertension Priority: Secondary Status: Chronic Qualifiers: Hypertension type: essential hypertension Qualified Code(s): I10 - Essential (primary) hypertension (5) UTI (urinary tract infection) Priority: Secondary Status: Acute Qualifiers: Urinary tract infection type: site unspecified Hematuria presence: with hematuria Qualified Code(s): N39.0 - Urinary tract infection, site not specified; R31.9 - Hematuria, unspecified Hospital course: Mr. Medrano is a 83 year old male who came to emergency room stating he had an episode of near syncope after coming back from the bathroom to the bedroom earlier today. He reported feeling "lightheaded" without vertigo sensation. 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 He fell without injury. He was brought to emergency room and was evaluated and found to have bradycardia with heart rate 39/m. He was admitted to [facility] for ongoing care needs. Initial orders were written by the emergency room physician. I saw him on September 12 and performed a history and physical. Metoprolol was discontinued and heart rate increased to 75 by the following morning. Orthostatic vital signs on September 13 showed no orthostatic change. He felt improved and stable for discharge home. He will remain off metoprolol at discharge. He will monitor his blood pressure and heart rate at home. I told him his PCP could adjust the Norvasc and lisinopril dose upward if needed. He also could be changed from Flomax to Cardura for BPH and hypertension control. He was given Rocephin in emergency room. Review of archive labs shows pyuria consistently present on urine specimens dating back to 2015. He had no UTI symptoms. His PCP and/or urologist can determine if antibiotics should be given. He will follow with his PCP Poornima Luna CNP within 1 week. - Time Spent with Patient Total time spent providing and/or coordinating discharge services: - Discharge Medications Home Medications: Lisinopril [Zestril] 20 mg PO DAILY 03/22/16 [History] Simvastatin [Zocor] 40 mg PO HS 03/22/16 [History] Tamsulosin [Flomax] 0.4 mg PO DAILY 03/22/16 [History] LORazepam [Ativan] 1 mg PO DAILY 04/18/18 [History] Ranitidine HCl [Acid Weatherization Specialist] 75 mg PO DAILY 04/18/18 [History] Aspirin [Lo-Dose Aspirin EC] 81 mg PO DAILY 365 Days tablet. 04/19/18 [Rx] amLODIPine [Norvasc] 5 mg PO DAILY 09/12/18 [History] Allergies/Adverse Reactions: Allergy/AdvReac Type Severity Reaction Status Date / Time No Known Allergies Allergy Verified 03/23/16 09:19 Date of admission: 09/12/18 11:36 Primary care physician: Poornima Luna CNP Consults: 09/12/18 16:18 Consult to Pastoral Services [CONS] Routine Comment: - Constitutional Vitals: Temp Pulse Resp BP Pulse Ox 98.2 F 57 16 163/68 93 09/13/18 07:00 09/13/18 07:00 09/13/18 07:00 09/13/18 07:00 09/13/18 07:00 - Patient Status Disposition: Home, Self-Care - Discharge Instructions Follow Up With: Poornima Luna CNP [Primary Care Provider] - 1 week - Diet and Activity Activity: resume usual activities as tolerated Diet: advance to your usual diet
== END 2018-09-13 10:50 | disposition home or self-care (01) ==
LOC: INPPIK 08:51 → EMEROOPIK 08:51 → INPPIK 15:36
PROVIDERS: ADMIT Internal Medicine; ATTEND Internal Medicine

== ENCOUNTER 2021-09-02 11:43 | Inpatient (IN) ==
[2021-09-02] MEDS ORDERED: Azithromycin 500 MG in 0.9 % Sodium Chloride 250 ML IVPB ONE (12:27)
[2021-09-02] MEDS ORDERED: cefTRIAXone 1,000 MG in 0.9 % Sodium Chloride Mini Bag 100 ML IVPB ONE (12:27)
[2021-09-02 12:35] LABS: Basophils % 0.2 %; Eosinophils % 0.1 %; Hematocrit 33.7 % (37.5-50.1); Hemoglobin 11.2 g/dL (12.9-16.9); Immature Granulocytes % 1.5 % (0-4); Lymphocytes # 0.3 K/mcL (0.6-4.6); Lymphocytes % 2.3 %; Mean Corpuscular HGB Conc 33.2 g/dL (31.6-35.5); Mean Corpuscular Hemoglobin 29.2 pg (28.0-33.3); Mean Corpuscular Volume 87.8 fL (83.0-100.0); Mean Platelet Volume 10.5 fL (9.4-12.4); Monocytes # 0.6 K/mcL (0.0-1.3); Neutrophils # 13.5 K/mcL (1.6-8.9); Platelet Count 309 K/mcL (140-400); Red Blood Count 3.84 M/mcL (4.19-5.50); Segmented Neutrophils % 91.9 %; White Blood Count 14.7 K/mcL (4.3-11.1)
[2021-09-02 12:38] LABS: INR 1.3
[2021-09-02 12:40] LABS: Activated Partial Thrombo Time 31.5 Seconds (26.0-36.0)
[2021-09-02] MEDS: 0.9 % Sodium Chloride 1,000 ML IVC SCH (12:44)
[2021-09-02 12:46] LABS: Alanine Aminotransferase 78 Units/L (7-52); Albumin/Globulin Ratio 0.8 (1.1-2.2); Alkaline Phosphatase 179 Units/L (34-104); Aspartate Amino Transferase 64 Units/L (13-39); BUN/Creatinine Ratio 25 (6-26); Bilirubin,Direct 0.4 mg/dL (0.0-0.2); Bilirubin,Indirect 0.4 mg/dL (0.0-1.0); Bilirubin,Total 0.8 mg/dL (0.3-1.0); Blood Urea Nitrogen 45 mg/dL (8-23); Calcium 8.9 mg/dL (8.6-10.3); Carbon Dioxide 18 mEq/L (23-29); Chloride 107 mEq/L (98-107); Globulin 3.7 g/dL (2.4-3.5); Glucose 215 mg/dL (70-105); Magnesium 2.1 mg/dL (1.6-2.6); Osmolality,Calculated 302 (280-300); Phosphorous 1.8 mg/dL (2.7-4.5); Potassium 3.6 mEq/L (3.5-5.1); Sodium 137 mEq/L (136-145); Total Protein 6.7 g/dL (6.4-8.9); eGFR For African Americans 44 (> 60); eGFR For Non-African Americans 36 (> 60)
[2021-09-02] MEDS ORDERED: 0.9 % Sodium Chloride 1,000 ML IVC ONE (12:58)
[2021-09-02 16:34] LABS: C-Reactive Protein > 300 mg/L (Less than 10); Ferritin 617 ng/mL (20-250); Lactate Dehydrogenase 352 Units/L (140-271)
[2021-09-02] MEDS ORDERED: Naloxone 0.4 MG/ML INJ IVP PRN (16:49)
[2021-09-02] MEDS ORDERED: Ondansetron 4 MG/2 ML VIAL IVP PRN (16:49)
[2021-09-02] MEDS ORDERED: Acetaminophen 325 MG TABLET PO PRN (16:49)
[2021-09-02 17:06] LABS: Fibrinogen > 1000 mg/dL (169-393)
[2021-09-02] MEDS: *HR* Heparin 5,000 UNIT/ML VIAL SQ SCH (21:27)
[2021-09-02] MEDS: Budesonide/Formoterol 160/4.5 1 PUFF INH IH SCH (21:42)
[2021-09-03] MEDS: 0.9 % Sodium Chloride 1,000 ML IVC SCH ×2 (01:43→01:44)
[2021-09-03] MEDS: *HR* Heparin 5,000 UNIT/ML VIAL SQ SCH ×3 (06:02→22:13)
[2021-09-03 07:52] LABS: Basophils % 0.1 %; Hematocrit 33.2 % (37.5-50.1); Hemoglobin 10.6 g/dL (12.9-16.9); Immature Granulocytes % 2.3 % (0-4); Lymphocytes # 0.5 K/mcL (0.6-4.6); Lymphocytes % 3.3 %; Mean Corpuscular HGB Conc 31.9 g/dL (31.6-35.5); Mean Corpuscular Hemoglobin 28.5 pg (28.0-33.3); Mean Corpuscular Volume 89.2 fL (83.0-100.0); Mean Platelet Volume 10.3 fL (9.4-12.4); Monocytes # 0.7 K/mcL (0.0-1.3); Neutrophils # 12.7 K/mcL (1.6-8.9); Platelet Count 313 K/mcL (140-400); Red Blood Count 3.72 M/mcL (4.19-5.50); Red Cell Distribution Width 14.1 % (11.5-14.5); Segmented Neutrophils % 89.3 %; White Blood Count 14.2 K/mcL (4.3-11.1)
[2021-09-03 08:09] LABS: Alanine Aminotransferase 72 Units/L (7-52); Albumin 2.7 g/dL (3.5-5.7); Albumin/Globulin Ratio 0.8 (1.1-2.2); Alkaline Phosphatase 158 Units/L (34-104); Aspartate Amino Transferase 54 Units/L (13-39); BUN/Creatinine Ratio 31 (6-26); Bilirubin,Total 0.4 mg/dL (0.3-1.0); Blood Urea Nitrogen 39 mg/dL (8-23); Calcium 8.7 mg/dL (8.6-10.3); Carbon Dioxide 18 mEq/L (23-29); Chloride 111 mEq/L (98-107); Chol/HDL Ratio 4.2 (0-4.9); Cholesterol 72 mg/dL (< 200); Globulin 3.3 g/dL (2.4-3.5); Glucose 170 mg/dL (70-105); HDL Cholesterol 17 mg/dL (40-59); LDL Cholesterol,Calculated 31 mg/dL (< 100); Magnesium 2.1 mg/dL (1.6-2.6); Osmolality,Calculated 299 (280-300); Potassium 3.9 mEq/L (3.5-5.1); Sodium 138 mEq/L (136-145); Triglycerides 119 mg/dL (< 150); eGFR For African Americans > 60 (> 60); eGFR For Non-African Americans 55 (> 60)
[2021-09-03 09:12] LABS: Troponin I 0.04 ng/mL (< 0.04)
[2021-09-03] MEDS: Aspirin Enteric Coated 81 MG Tablet PO SCH (09:24)
[2021-09-03] MEDS: lisinopriL 20 MG TABLET PO SCH (09:24)
[2021-09-03] MEDS: amLODIPine 5 MG TABLET PO SCH (09:24)
[2021-09-03] MEDS: cefTRIAXone 2,000 MG in 0.9 % Sodium Chloride Mini Bag 100 ML IVPB SCH (09:24)
[2021-09-03] MEDS: Azithromycin 500 MG in 0.9 % Sodium Chloride 250 ML IVPB SCH (09:25)
[2021-09-03] MEDS: Budesonide/Formoterol 160/4.5 1 PUFF INH IH SCH ×2 (09:44→22:25)
[2021-09-03] MEDS ORDERED: MOM Conc 10 ML UD.LIQ PO ONE (14:00)
[2021-09-04] MEDS: *HR* Heparin 5,000 UNIT/ML VIAL SQ SCH ×3 (06:26→19:47)
[2021-09-04 07:36] LABS: Basophils % 0.2 %; Hematocrit 33.2 % (37.5-50.1); Hemoglobin 10.6 g/dL (12.9-16.9); Immature Granulocytes % 2.6 % (0-4); Lymphocytes # 0.8 K/mcL (0.6-4.6); Lymphocytes % 4.3 %; Mean Corpuscular HGB Conc 31.9 g/dL (31.6-35.5); Mean Corpuscular Hemoglobin 28.3 pg (28.0-33.3); Mean Corpuscular Volume 88.8 fL (83.0-100.0); Mean Platelet Volume 10.2 fL (9.4-12.4); Monocytes # 0.5 K/mcL (0.0-1.3); Monocytes % 2.8 %; Platelet Count 392 K/mcL (140-400); Red Blood Count 3.74 M/mcL (4.19-5.50); Red Cell Distribution Width 14.1 % (11.5-14.5); Segmented Neutrophils % 90.1 %; White Blood Count 17.7 K/mcL (4.3-11.1)
[2021-09-04 07:45] LABS: Alanine Aminotransferase 95 Units/L (7-52); Albumin 2.7 g/dL (3.5-5.7); Albumin/Globulin Ratio 0.8 (1.1-2.2); Alkaline Phosphatase 149 Units/L (34-104); Aspartate Amino Transferase 66 Units/L (13-39); BUN/Creatinine Ratio 37 (6-26); Bilirubin,Total 0.4 mg/dL (0.3-1.0); Blood Urea Nitrogen 43 mg/dL (8-23); Calcium 8.8 mg/dL (8.6-10.3); Carbon Dioxide 19 mEq/L (23-29); Chloride 112 mEq/L (98-107); Globulin 3.4 g/dL (2.4-3.5); Glucose 153 mg/dL (70-105); Osmolality,Calculated 306 (280-300); Potassium 4.2 mEq/L (3.5-5.1); Sodium 141 mEq/L (136-145); Total Protein 6.1 g/dL (6.4-8.9); eGFR For African Americans > 60 (> 60); eGFR For Non-African Americans 59 (> 60)
[2021-09-04] MEDS ORDERED: Isovue-370 500 ML BOTTLE IVP ONE (08:56)
[2021-09-04] MEDS ORDERED: 0.9 % Sodium Chloride 1,000 ML IVC SCH (09:00)
[2021-09-04] MEDS: lisinopriL 20 MG TABLET PO SCH (09:14)
[2021-09-04] MEDS: Aspirin Enteric Coated 81 MG Tablet PO SCH (09:14)
[2021-09-04] MEDS: amLODIPine 5 MG TABLET PO SCH (09:14)
[2021-09-04] MEDS: cefTRIAXone 2,000 MG in 0.9 % Sodium Chloride Mini Bag 100 ML IVPB SCH (09:15)
[2021-09-04] MEDS: Azithromycin 500 MG in 0.9 % Sodium Chloride 250 ML IVPB SCH (09:16)
[2021-09-04] MEDS: Budesonide/Formoterol 160/4.5 1 PUFF INH IH SCH ×2 (09:21→23:01)
[2021-09-04] MEDS: *HR* LORazepam 0.5 MG TABLET PO PRN ×2 (09:42→19:46)
[2021-09-04 14:36] LABS: Bilirubin,Urine Negative (Negative); Blood,Urine Trace-lysed (Negative); Clarity,Urine Clear (Clear); Color,Urine Yellow (Yellow); Glucose,Urine (UA) Normal (Normal); Ketones,Urine Negative (Negative); Leukocyte Esterase,Urine Negative (Negative); Nitrite,Urine Negative (Negative); PH,Urine 5.5 pH Units (5.0-8.0); Protein,Urine 30 mg/dL (Neg-Trace); Urobilinogen,Urine Normal (Normal)
[2021-09-04 14:46] LABS: Squamous Epithelial Cell,Urine Few per hpf (None-Few); White Blood Cell Casts,Urine Few per lpf (None Seen)
[2021-09-05] MEDS: *HR* Heparin 5,000 UNIT/ML VIAL SQ SCH ×2 (05:54→15:59)
[2021-09-05 06:18] LABS: Basophils % 0.2 %; Hematocrit 29.7 % (37.5-50.1); Hemoglobin 9.6 g/dL (12.9-16.9); Immature Granulocytes % 2.8 % (0-4); Lymphocytes # 0.9 K/mcL (0.6-4.6); Mean Corpuscular HGB Conc 32.3 g/dL (31.6-35.5); Mean Corpuscular Hemoglobin 28.7 pg (28.0-33.3); Mean Corpuscular Volume 88.9 fL (83.0-100.0); Monocytes # 0.6 K/mcL (0.0-1.3); Monocytes % 3.6 %; Neutrophils # 15.2 K/mcL (1.6-8.9); Platelet Count 414 K/mcL (140-400); Red Blood Count 3.34 M/mcL (4.19-5.50); Red Cell Distribution Width 14.4 % (11.5-14.5); Segmented Neutrophils % 88.4 %; White Blood Count 17.2 K/mcL (4.3-11.1)
[2021-09-05 07:05] LABS: Alanine Aminotransferase 79 Units/L (7-52); Albumin 2.4 g/dL (3.5-5.7); Albumin/Globulin Ratio 0.8 (1.1-2.2); Alkaline Phosphatase 118 Units/L (34-104); Aspartate Amino Transferase 47 Units/L (13-39); BUN/Creatinine Ratio 37 (6-26); Bilirubin,Total 0.3 mg/dL (0.3-1.0); Blood Urea Nitrogen 40 mg/dL (8-23); Calcium 8.4 mg/dL (8.6-10.3); Carbon Dioxide 18 mEq/L (23-29); Chloride 114 mEq/L (98-107); Globulin 2.9 g/dL (2.4-3.5); Glucose 122 mg/dL (70-105); Osmolality,Calculated 303 (280-300); Potassium 4.4 mEq/L (3.5-5.1); Sodium 141 mEq/L (136-145); Total Protein 5.3 g/dL (6.4-8.9); eGFR For African Americans > 60 (> 60); eGFR For Non-African Americans > 60 (> 60)
[2021-09-05] MEDS: lisinopriL 20 MG TABLET PO SCH (08:53)
[2021-09-05] MEDS: Aspirin Enteric Coated 81 MG Tablet PO SCH (08:55)
[2021-09-05] MEDS: amLODIPine 5 MG TABLET PO SCH (08:55)
[2021-09-05] MEDS ORDERED: levoFLOXacin 750 MG TABLET PO SCH (09:00)
[2021-09-05] MEDS ORDERED: dexAMETHasone 4 MG TABLET PO SCH (09:00)
[2021-09-05] MEDS: Budesonide/Formoterol 160/4.5 1 PUFF INH IH SCH (09:31)
[2021-09-05 09:34] VITALS: RESP 20
[2021-09-05 09:55] VITALS: BP 156/69; PULSE 66; TEMP 97.3
[2021-09-05 10:47] VITALS: O2SAT 91
== END 2021-09-05 18:30 | disposition home health service (06) | DRG 177 ==
LOC: EMEROOPIK 11:43 → INPPIK 11:43
PROVIDERS: ADMIT Family Medicine; ATTEND Family Medicine